=== PATIENT | male | born 1990 | race Hispanic/Latino ===

== ENCOUNTER 2022-03-23 18:36 | Emergency (ER) | payer SELFPAY | END 2022-03-23 19:38 | disposition home or self-care (01) | LOC: BURERS 18:36 | DX: S09.90XA Unspecified injury of head, initial encounter (principal); S13.4XXA Sprain of ligaments of cervical spine, initial encounter; R55 Syncope and collapse; W18.09XA Striking against other object with subsequent fall, initial encounter | CPT/HCPCS: 70450; 72125; 93005 ==